=== PATIENT | female | born 1980 | race Two or more races ===

== ENCOUNTER 2023-01-03 15:04 | Emergency (ER) | payer OTHER ==
[~2023-01-03] VITALS: Ht 167.6 cm; Wt 63.5 kg
[2023-01-03 15:40] VITALS: BP 126/79
--- NOTE | 2023-01-03 15:45 | NUR ---
"I started having cold symptoms last friday now worse going to ears"
--- NOTE | 2023-01-03 16:59 | NUR ---
INFLU SWAB TAKEN SENT TO LAB
[2023-01-03] MEDS ORDERED: NAPR500T6 PO (18:44)
[2023-01-03] MEDS ORDERED: AMOX500C2 PO (18:44)
--- NOTE | 2023-01-03 18:47 | NUR ---
Patient discharged to home in stable condition. Written and verbal after care instructions given. Patient verbalizes understanding of instruction.
== END 2023-01-03 18:50 | disposition home or self-care (01) ==
LOC: ER 15:22
DX: H66.93 Otitis media, unspecified, bilateral (principal)